=== PATIENT | male | born 1980 | race Caucasian/White ===

== ENCOUNTER → 2024-09-17 06:58 | Outpatient (CLI) | payer OTHER, SELFPAY ==
--- NOTE | 2024-09-17 07:02 | DI.ECHO.S_ITS ---
[facility] : : [address] : : [place] : : [id number] : : Phone: [phone] Echocardiogram Report + + :Name: ALFREDA EUBANKS Study Date: 09/17/2024 Height: 75 in : :[facility] ReadingLocation: Weight: 254 lb : : Gender: Male BSA: 2.4 m2 : :: 1980 Age: 43 yrs BP: 138/85 mmHg: :Reason For Study: ATRIAL FIBRILLATION : :Ordering Physician: LEANDRO HEREDIA Performed By: Joy Mendoza : :Referring: LEANDRO HEREDIA : + + Interpretation Summary 1. The left ventricular contractility is normal. Estimated ejection fraction is greater than 60% with no segmental wall motion abnormalities. No LVH. Normal diastolic function. 2. The right ventricular contractility is normal. 3. All cardiac chambers are of normal size. 4. No significant valvular abnormalities. 5. No obvious intracardiac shunts. 6. No obvious intracardiac masses nor thrombi. 7. No hemodynamically significant pericardial effusion. 8. Low right-sided filling pressures. Conclusion: Normal biventricular function with no significant valvular nor structural abnormalities. Procedure: A two-dimensional transthoracic echocardiogram with color flow and Doppler was performed. The study quality was technically adequate. There is no prior echocardiogram noted for this patient. The patient was in sinus rhythm with heart rates between 73-86 bpm during the exam. Left Ventricle: The left ventricle is normal in size and wall thickness. The ejection fraction is estimated to be 60-65%. Right Ventricle: The right ventricle is normal in size and function. Atria: The left atrial size is normal. Right atrial size is normal. There is no Doppler evidence for an interatrial shunt. Mitral Valve: The mitral valve leaflets appear to open well. There is trace mitral regurgitation. Aortic Valve: The aortic valve is trileaflet. The aortic valve opens well. There is no aortic valve stenosis. No aortic regurgitation is present. Tricuspid Valve: The tricuspid valve leaflets are thin and pliable. No tricuspid regurgitation. Pulmonary artery pressures cannot be estimated because of the lack of a measurable TR jet velocity but the IVC suggests a CVP of around 3 mmHg. Pulmonic Valve: The pulmonic valve leaflets are thin and pliable; valve motion is normal. There is no pulmonic valvular regurgitation. Great Vessels: The aortic root is normal size. The dimensions of the ascending aorta are normal. The IVC is of normal diameter and collapses greater than 50% with a sniff. This suggests a low right atrial pressure of 3 mm Hg. Pericardium/ Pleura There is no pericardial effusion. There is no pleural effusion. MMode/2D Measurements & Calculations LVIDd: 5.0 cm LVOT diam: 2.2 cm LVIDs: 3.2 cm Ao root diam: 3.4 cm FS: 35.6 % asc Aorta Diam: 3.0 cm EPSS: 0.22 cm Ao Arch Diam (Prox Trans): 2.8 cm IVSd: 0.68 cm LVPWd: 0.61 cm LV cueto. diameter/BSA (cm/m^2): 2.1 LV sys. diameter/BSA (cm/m^2): 1.3 LA A2 area: 19.7 cm2 RA long axis: 5.6 cm LA A4 area: 20.3 cm2 RA area: 17.5 cm2 LA length (vol): 5.7 cm RA vol: 46.4 ml LA vol: 60.0 ml RA : 19.1 ml/m2 LA vol index: 24.7 ml/m2 IVC diam: 1.5 cm RVD1 (basal): 3.5 cm RVD2 (mid): 3.7 cm TAPSE: 2.3 cm Doppler Measurements & Calculations Ao V2 max: 134.6 cm/sec LVOT Max Ethan: 124.5 cm/sec Ao V2 mean: 89.6 cm/sec LV V1 max P.2 mmHg Ao max P.2 mmHg LV V1 VTI: 25.6 cm Ao mean P.7 mmHg SE(I,D): 3.8 cm2 Ao V2 VTI: 25.7 cm SE(V,D): 3.5 cm2 sev ratio: 1.00 SE indexed to BSA (cm^2/m^2): 1.6 MV E max ethan: 83.9 cm/sec PA V2 max: 116.0 cm/sec MV A max ethan: 67.4 cm/sec PA V2 mean: 77.5 cm/sec MV E/A: 1.2 PA mean P.7 mmHg Med Peak E' Ethan: 10.2 cm/sec PA pr(Accel): 28.9 mmHg E/E' med: 8.2 Lat Peak E' Ethan: 14.4 cm/sec E/E' lat: 5.8 E/e' average: 7.0 MV dec time: 0.16 sec SV(LVOT): 97.6 ml Reading Physician:TU
--- NOTE | 2024-09-17 07:03 | DI.NM.S_ITS ---
PROCEDURE: NM EXERCISE TREADMILL NON NUC COMPARISON: None. INDICATIONS: PAF FINDINGS: Rest ECG sinus rhythm 67 bpm. Amado protocol 9:35, maximum heart rate 158 bpm (89% peak predicted), peak blood pressure 166/90, 10.1 METS, BAKARI +17%. Exercise ECG cardia, no ST segment changes or arrhythmia. The patient did not report exercise-induced chest discomfort. IMPRESSION: Low risk study. No evidence of exercise-induced ischemia or arrhythmia on ECG. Normal hemodynamic response. Slightly reduced exercise capacity. Dictated by: Belén Lambert D.O. on 09/17/2024 at 16:40 Approved by: Belén Lambert D.O. on 09/17/2024 at 16:43
== END ==
LOC: NUCM 07:01
PROVIDERS: Referring Provider Internal Medicine; Visit Provider Internal Medicine
DX: I48.0 Paroxysmal atrial fibrillation (principal)
CPT/HCPCS: 93017; 93306